=== PATIENT | female | born 1940 | race Caucasian/White ===

== ENCOUNTER → 2016-02-23 | Outpatient (CLI) | payer MEDICARE, OTHER ==
[2016-02-23 08:32] LABS: ANION GAP 17.1 MEQ/L (3-15)
== END ==
LOC: LAB 08:07
PROVIDERS: ATTEND Family Medicine
DX: E87.5 Hyperkalemia (principal)
CPT/HCPCS: 36415; 80048

== ENCOUNTER → 2016-03-21 | Outpatient (CLI) | payer MEDICARE, OTHER ==
[2016-03-21 10:18] LABS: ANION GAP 18.9 MEQ/L (3-15)
== END ==
LOC: LAB 09:19
PROVIDERS: ATTEND Family Medicine
DX: E87.1 Hypo-osmolality and hyponatremia (principal)
CPT/HCPCS: 36415; 80048

== ENCOUNTER → 2016-04-05 | Outpatient (CLI) | payer MEDICARE, OTHER ==
[2016-04-05 09:54] LABS: ANION GAP 20.1 MEQ/L (3-15)
== END ==
LOC: LAB 09:19
PROVIDERS: ATTEND Family Medicine
DX: E87.5 Hyperkalemia (principal)
CPT/HCPCS: 36415; 80048

== ENCOUNTER → 2016-04-14 | Outpatient (CLI) | payer MEDICARE, OTHER ==
[2016-04-14 09:48] LABS: ANION GAP 19.7 MEQ/L (3-15)
== END ==
LOC: LAB 09:02
PROVIDERS: ATTEND Family Medicine
DX: E87.5 Hyperkalemia (principal)
CPT/HCPCS: 36415; 80048

== ENCOUNTER → 2016-04-28 | Outpatient (CLI) | payer MEDICARE, OTHER | LOC: LAB 10:40 | PROVIDERS: ATTEND Family Medicine | DX: E87.5 Hyperkalemia (principal); I10 Essential (primary) hypertension | CPT/HCPCS: 36415; 80048 ==

== ENCOUNTER → 2016-06-14 | Outpatient (REF) | payer MEDICARE, OTHER ==
[~2016-06-14] MED LIST: ATOR20TA PO; HYDR-3702 PO; HYDR12.56 PO; INSU100V19 SC; LEVO100T PO; METF1000 PO; NF-LISIN40 PO
[2016-06-14 10:17] LABS: BASOPHILS % (AUTO) 0 % (0-2); EOSINOPHILS # (AUTO) 0.2 10^3uL; EOSINOPHILS % (AUTO) 2 % (0-4); LYMPHOCYTES # (AUTO) 1.9 X10^3; MEAN CORPUSCULAR HEMOGLOBIN 27.2 PG (26.0-34.0); MEAN CORPUSCULAR HGB CONC 33.2 g/dL (31.0-37.0); MEAN CORPUSCULAR VOLUME 82 FL (80-100); MEAN PLATELET VOLUME 11.7 FL (6.0-9.5); MONOCYTES # (AUTO) 0.8 X10^3; MONOCYTES % (AUTO) 8 % (3-11); NEUTROPHILS # (AUTO) 7.4 X10^3; NEUTROPHILS % (AUTO) 72 % (51-67); PLATELET COUNT 329 10^3uL (150-450); WHITE BLOOD COUNT 10.22 10^3uL (4.0-11.0)
[2016-06-14 10:19] LABS: BILIRUBIN,URINE Negative (Negative); CLARITY,URINE Clear; COLOR,URINE Yellow; GLUCOSE, URINE (UA) Negative (Negative); LEUKOCYTE ESTERASE, URINE 1+ (Negative); PH,URINE 5.5 (5.0 - 8.0); UROBILINOGEN,URINE 0.2 mg/dL (0.2-1.0)
[2016-06-14 10:29] LABS: RBC,URINE 0-2 /HPF; URINE CENTRIFUGED VOLUME 10 mL
[2016-06-14 10:43] LABS: ALBUMIN 4.4 g/dL (3.4-5.0); ANION GAP 20.4 MEQ/L (3-15); CALCULATED IONIZED CALCIUM 4.3 mg/dL (3.8-4.6); TOTAL PROTEIN 7.3 g/dL (6.4-8.5)
== END ==
LOC: LAB 09:33
PROVIDERS: ATTEND Nurse Practitioner Family
DX: E11.9 Type 2 diabetes mellitus without complications (principal); E78.4 Other hyperlipidemia; I10 Essential (primary) hypertension; E07.89 Other specified disorders of thyroid; Z78.9 Other specified health status
CPT/HCPCS: 80053; 80061; 81003; 81015; 82043; 83036; 84443; 85025; 86787

== ENCOUNTER 2016-06-16 17:05 | Emergency (ER) | payer MEDICARE, OTHER ==
[~2016-06-16] VITALS: Ht 165.1 cm; Wt 82.7 kg
--- OUTSIDE RECORDS SUMMARY | 2016-06-16 17:10 | XMS REPORT | Referral Summary ---
Author Author [facility] Organization [facility] Address Unknown Phone Unavailable Care Team Providers Care Core Loader Name Role Phone Radha Ang PCP [phone] Encounter VC Date(s): 10/20/15 - 10/20/15 [facility] [address] [place], [place] [address] Discharge Diagnosis: Cecal lesion Discharge Disposition: 01-Home or Self Care Attending Physician: Anand Harper MD Admitting Physician: Anand Harper MD Vital Signs No data available for this section Problem List Condition Effective Dates Status Health Status Informant Benign essential Active hypertension (disorder)(Confirmed ) Diabetes(Confirmed) Active patient Hyperlipidemia(Confi Active patient rmed) Hypothyroidism Active (disorder)(Confirmed ) Allergies, Adverse Reactions, Alerts Substance Reaction Severity Status PHENobarbital Active Medications Aspir 81 mg, Oral, Daily, 0 Refill(s) Start Date: 08/18/15 Status: Orderedatorvastatin 20 mg oral tablet mg tabs, Oral, Bedtime (once a day), 0 Refill(s) Start Date: 08/18/15 Status: OrderedComplete Formulation Softgels D3000 oral capsule caps, Oral, Daily, 0 Refill(s) Start Date: 08/18/15 Status: OrderedEpiPen 2-Lester mg, IntraMuscular, Once, 0 Refill(s) Start Date: 08/18/15 Status: OrderedFlonase sprays, Nasal, Daily, 0 Refill(s) Start Date: 08/18/15 Status: OrderedHumaLOG Mix 75/25 subcutaneous suspension SubCutaneous, 0 Refill(s) Start Date: 08/18/15 Status: Orderedhydrochlorothiazide 25 mg oral tablet mg tabs, Oral, Daily, 0 Refill(s) Start Date: 08/18/15 Status: Orderedlisinopril 40 mg oral tablet mg tabs, Oral, Daily, 0 Refill(s) Start Date: 08/18/15 Status: OrderedmetFORMIN 1000 mg oral tablet mg tabs, Oral, BID, 0 Refill(s) Start Date: 08/18/15 Status: Orderednaproxen Oral, 0 Refill(s) Start Date: 08/18/15 Status: OrderedThyroxine Sodium Pentahydrate 0 Refill(s) Start Date: 08/18/15 Status: Ordered Results No data available for this section Immunizations Vaccine Date Refusal Reason influenza virus vaccine, live 11/07/11 Procedures Procedure Date Related Diagnosis Body Site Appendectomy Cholecystectomy Hysterectomy Social History No data available for this section Assessment and Plan No data available for this section
[2016-06-16] MEDS ORDERED: HYDROmorphone 1 MG/ML (DILAUDID) SYRINGE IV ONE (17:25)
--- NOTE | 2016-06-16 18:25 | NUR ---
ua attempted x2 without success
--- NOTE | 2016-06-16 18:29 | Diagnostic Imaging Report ---
INDICATION: Periumbilical pain. EXAMINATION: Acute abdomen series. COMPARISON: 11/05/2015. FINDINGS: The lungs are clear. No evidence of free air under the diaphragm. Upright and supine abdomen shows small amount of gas scattered throughout the small bowel and colon. There does not appear to be significant stool burden in the colon. Stomach is not distended. There is no organomegaly. No pathologic calcification. IMPRESSION: No evidence of bowel obstruction. Could not exclude mild adynamic ileus. Dictated by: Dictated on workstation # [id number]
[2016-06-16 18:42] LABS: BASOPHILS % (AUTO) 0 % (0-2); EOSINOPHILS # (AUTO) 0.1 10^3uL; EOSINOPHILS % (AUTO) 1 % (0-4); LYMPHOCYTES # (AUTO) 1.9 X10^3; MEAN CORPUSCULAR HGB CONC 32.6 g/dL (31.0-37.0); MEAN CORPUSCULAR VOLUME 82 FL (80-100); MEAN PLATELET VOLUME 11.1 FL (6.0-9.5); MONOCYTES # (AUTO) 0.9 X10^3; MONOCYTES % (AUTO) 6 % (3-11); NEUTROPHILS # (AUTO) 10.9 X10^3; NEUTROPHILS % (AUTO) 79 % (51-67); PLATELET COUNT 297 10^3uL (150-450); WHITE BLOOD COUNT 13.86 10^3uL (4.0-11.0)
[2016-06-16 18:47] LABS: ALBUMIN 4.5 g/dL (3.4-5.0); ANION GAP 18.9 MEQ/L (3-15); TOTAL PROTEIN 7.5 g/dL (6.4-8.5)
[2016-06-16 18:51] LABS: MEAN CORPUSCULAR HEMOGLOBIN 26.6 PG (26.0-34.0)
[2016-06-16 19:38] LABS: BILIRUBIN,URINE Negative (Negative); COLOR,URINE Yellow; GLUCOSE, URINE (UA) Negative (Negative); LEUKOCYTE ESTERASE ,URINE 1+ (Negative); PH,URINE 6.5 (5.0 - 8.0); UROBILINOGEN,URINE 0.2 mg/dL (0.2-1.0)
[2016-06-16 19:41] LABS: CLARITY,URINE Slightly Cloudy
[2016-06-16 19:47] LABS: RBC,URINE None Seen /HPF; URINE CENTRIFUGED VOLUME 12 mL
[2016-06-16 22:20] VITALS: BP 143/45
== END 2016-06-16 22:22 | disposition home or self-care (01) ==
LOC: ED 17:07
DX: R10.84 Generalized abdominal pain (principal); I10 Essential (primary) hypertension; E11.9 Type 2 diabetes mellitus without complications
CPT/HCPCS: 36415; 74022; 80053; 81003; 81015; 82274; 82607; 82728; 82746; 83540; 83690; 85025; 87040; 87088; 96361; 96374; 99283; J1170; J7030

== ENCOUNTER → 2016-06-21 | Outpatient (CLI) | payer MEDICARE, OTHER | LOC: LAB 09:51 | PROVIDERS: ATTEND Family Medicine | DX: R19.5 Other fecal abnormalities (principal) | CPT/HCPCS: 87324; 87449 ==